=== PATIENT | male | born 1955 | race Caucasian/White ===

== ENCOUNTER 2023-10-10 18:09 | Emergency (ER) | payer MEDICARE ==
[~2023-10-10] VITALS: Ht 170.2 cm; Wt 112.0 kg
[2023-10-10] MEDS ORDERED: MONTELUKAST SOD10 MG PO ×2 (18:16→18:48)
[2023-10-10] MEDS ORDERED: ZESTRIL40 MG PO (18:16)
[2023-10-10] MEDS ORDERED: TOPROL XL50 MG PO (18:16)
[2023-10-10] MEDS ORDERED: ZYRTEC10 M3 PO (18:17)
[2023-10-10] MEDS ORDERED: FLOMAX0.4 MG PO ×2 (18:17→18:48)
[2023-10-10] MEDS ORDERED: FUROSEMIDE40 MG PO (18:17)
[2023-10-10] MEDS ORDERED: PEPCID20 MG PO (18:17)
[2023-10-10] MEDS ORDERED: FLOVENT HFA12 GM INH (18:18)
[2023-10-10] MEDS ORDERED: METFORMIN HCL500 MG PO (18:48)
[2023-10-10] MEDS ORDERED: METOPROLOL SUCC25 MG PO (18:48)
[2023-10-10] MEDS ORDERED: LISINOPRIL40 MG PO (18:48)
[2023-10-10 19:00] VITALS: BP 160/80
--- OUTSIDE RECORDS SUMMARY | 2023-10-10 19:45 | XMS ---
PreManage Notification: BESSY [employer] Events No recent Security Events currently on file CRITERIA MET - 6 ED Visits in 6 Months - [facility] - 2 Visits in 30 Days CARE PROVIDERS KRISTA RODRIGUEZ Nurse Practitioner: 12/02/2022-12/01/2023 PHONE: Unknown ETELVINA WELSH Counselor: Mental Health Current PHONE: [phone] Care Guidelines exist for the following facilities: [facility] ( 08/20/2020 ) [place] [facility] T[facility] 10 NOTE: Visits indicate total known visits. ED/UCC VISIT TRACKING (12 MO.) 10/10/2023 18:10 [facility] [place] TYPE: Emergency COMPLAINT: - WE[facility] DIAGNOSES: - Essential (primary) hypertension - Personal history of transient ischemic attack (TIA), and cerebral infarction without residual deficits - Hypertension - Medical Problem (Minor) 10/02/2023 03:40 [facility] TYPE: Emergency DIAGNOSES: - Essential (primary) hypertension - Other specified personal risk factors, not elsewhere classified - Personal history of transient ischemic attack (TIA), and cerebral infarction without residual deficits - Altered Mental Status - Headache (Adult - Re-evaluation) 09/27/2023 16:04 [facility] TYPE: Emergency DIAGNOSES: - Paresthesia of skin - Personal history of transient ischemic attack (TIA), and cerebral infarction without residual deficits - Neurologic Problem - possible stroke 09/22/2023 11:02 [facility] TYPE: Emergency DIAGNOSES: - Other general symptoms and signs - Other visual disturbances - Blurred Vision - Weakness 06/12/2023 10:18 [facility] TYPE: Emergency DIAGNOSES: - Cerebral infarction, unspecified - Hypokalemia - Dizziness 04/24/2023 20:24 [facility] TYPE: Emergency DIAGNOSES: - Hypokalemia - Syncope and collapse - Near Syncope 03/05/2023 05:59 [facility] [place] TYPE: Emergency DIAGNOSES: - Headache, unspecified - Other visual disturbances 02/28/2023 06:36 [facility] TYPE: Emergency DIAGNOSES: - Cellulitis, unspecified - Fall - Foot Pain - Leg Swelling 10/13/2022 05:43 [facility] TYPE: Emergency DIAGNOSES: - Dizziness and giddiness - Essential (primary) hypertension - Leg Swelling - Lightheaded INPATIENT VISIT TRACKING (12 MO.) 06/12/2023 10:18 [facility] TYPE: Internal Medicine DIAGNOSES: - Cerebral infarction, unspecified - Encounter for screening, unspecified - Essential (primary) hypertension - Hypokalemia - Type 2 diabetes mellitus with hyperglycemia - Unspecified cirrhosis of liver [email or web address]
== END 2023-10-10 19:00 | disposition home or self-care (01) ==
LOC: ED 18:09
DX: Z76.0 Encounter for issue of repeat prescription (principal); I10 Essential (primary) hypertension; E11.9 Type 2 diabetes mellitus without complications; J44.9 Chronic obstructive pulmonary disease, unspecified; Z79.899 Other long term (current) drug therapy
CPT/HCPCS: 99282